=== PATIENT | male | born 1985 | race Caucasian/White ===

== ENCOUNTER 2021-07-28 23:34 | Emergency (ER) | payer OTHER, BC ==
[~2021-07-28] VITALS: Ht 175.3 cm; Wt 68.0 kg
--- NOTE | 2021-07-29 01:49 | NUR ---
BIB C/O ABD PAIN X1 WEEK DESCRIBED BURNING 5/10 THAT WORSTENS AFTER EATING. DENIES ANY N/V OR CHANGES IN BOWEL HABITS. BREATHING IS EVEN AND UNLABORED. PT CHANGED INTO A GOWN AND PLACED ON THE MONITOR AND ALL V/S STABLE. MD WAS AT BEDSIDE FOR EVAL.
[2021-07-29] MEDS ORDERED: LIDOCAINE VISCOUS 2% UD 15 ML UDC ONE (02:34)
[2021-07-29] MEDS ORDERED: MAG HYDROX/AL HYDROX/SIMETH 30 ML UDC ONE (02:34)
[2021-07-29] MEDS: LIDOCAINE VISCOUS 2% UD 15 ML UDC MM ONE (02:40)
[2021-07-29] MEDS: MAG HYDROX/AL HYDROX/SIMETH 30 ML UDC PO ONE (02:40)
[2021-07-29] MEDS ORDERED: PANT40TA2 PO (03:09)
--- NOTE | 2021-07-29 03:17 | NUR ---
Patient discharged to home in stable condition. Written and verbal after care instructions given. Patient verbalizes understanding of instruction.
[2021-07-29 03:22] VITALS: BP 110/63
== END 2021-07-29 03:22 | disposition home or self-care (01) ==
LOC: ER 23:45
DX: K21.9 Gastro-esophageal reflux disease without esophagitis (principal); F17.200 Nicotine dependence, unspecified, uncomplicated; Z60.2 Problems related to living alone; Z79.899 Other long term (current) drug therapy